=== PATIENT | male | born 1980 | race Caucasian/White ===

== ENCOUNTER 2020-11-03 11:41 | Day surgery (SDC) | payer OTHER ==
[2020-10-31 17:01] VITALS: BMI 31.2
[2020-11-03] MEDS ORDERED: KETAMINE HCL 500 MG/10 ML VIAL ONE (12:43)
[2020-11-03 14:07] VITALS: TEMP 98
[2020-11-03 14:22] VITALS: BP 130/85; PULSE 75
== END 2020-11-03 14:20 | disposition home or self-care (01) ==
LOC: FECT 11:41
PROVIDERS: ATTEND Psychiatry & Neurology Psychiatry
PROC: GZB4ZZZ Other Electroconvulsive Therapy (ICD-10-PCS; principal; 2020-11-03 12:30)
DX: F32.9 Major depressive disorder, single episode, unspecified (principal)
CPT/HCPCS: 90870; 94760

== ENCOUNTER 2020-11-04 07:23 | Day surgery (SDC) | payer OTHER ==
[2020-11-04 08:00] VITALS: BMI 31.2
[2020-11-04] MEDS ORDERED: SUCCINYLCHOLINE CHLORIDE 200 MG/10 ML SYRINGE ONE (09:28)
[2020-11-04] MEDS ORDERED: KETAMINE HCL 500 MG/10 ML VIAL ONE (09:29)
[2020-11-04 11:18] VITALS: BP 128/77; PULSE 56
[2020-11-04 13:17] VITALS: TEMP 98.9
[2020-11-05 14:08] LABS: SARS-CoV-2 NAA Not Detected (Not Detected)
== END 2020-11-04 10:45 | disposition home or self-care (01) ==
LOC: FECT 07:23
PROVIDERS: ATTEND Psychiatry & Neurology Psychiatry
PROC: GZB4ZZZ Other Electroconvulsive Therapy (ICD-10-PCS; principal; 2020-11-04 09:30)
DX: F32.9 Major depressive disorder, single episode, unspecified (principal)
CPT/HCPCS: 90870; 94760; C9803; U0003; U0005

== ENCOUNTER 2020-11-07 10:42 | Day surgery (SDC) | payer OTHER ==
[2020-11-04 08:12] VITALS: BMI 31.2
[2020-11-07] MEDS ORDERED: KETAMINE HCL 500 MG/10 ML VIAL ONE (12:38)
[2020-11-07] MEDS ORDERED: KETOROLAC TROMETHAMINE 30 MG/1 ML VIAL ONE (12:45)
[2020-11-07 14:10] VITALS: TEMP 98.2
[2020-11-08 09:16] VITALS: BP 132/81; PULSE 73
== END 2020-11-07 14:40 | disposition home or self-care (01) ==
LOC: FECT 10:42
PROVIDERS: ATTEND Psychiatry & Neurology Psychiatry
PROC: GZB4ZZZ Other Electroconvulsive Therapy (ICD-10-PCS; principal; 2020-11-07 12:30)
DX: F32.9 Major depressive disorder, single episode, unspecified (principal)
CPT/HCPCS: 90870; 94760; C9803; U0003; U0005

== ENCOUNTER 2020-11-10 10:01 | Day surgery (SDC) | payer OTHER ==
[2020-11-04 08:15] VITALS: BMI 31.2
[2020-11-10] MEDS ORDERED: KETAMINE HCL 500 MG/10 ML VIAL ONE (12:38)
[2020-11-10 13:58] VITALS: BP 141/77; PULSE 88; TEMP 98
== END 2020-11-10 14:16 | disposition home or self-care (01) ==
LOC: FECT 10:01
PROVIDERS: ATTEND Psychiatry & Neurology Psychiatry
PROC: GZB4ZZZ Other Electroconvulsive Therapy (ICD-10-PCS; principal; 2020-11-10 11:30)
DX: F32.9 Major depressive disorder, single episode, unspecified (principal)
CPT/HCPCS: 90870; 94760

== ENCOUNTER 2020-11-11 08:55 | Day surgery (SDC) | payer OTHER ==
[2020-11-08 13:24] VITALS: BMI 31.2
[2020-11-11 09:14] VITALS: TEMP 97.8
[2020-11-11 11:24] VITALS: BP 126/71; PULSE 75
== END 2020-11-11 11:26 | disposition home or self-care (01) ==
LOC: FECT 08:55
PROVIDERS: ATTEND Psychiatry & Neurology Psychiatry
PROC: GZB4ZZZ Other Electroconvulsive Therapy (ICD-10-PCS; principal; 2020-11-11 10:30)
DX: F32.9 Major depressive disorder, single episode, unspecified (principal)
CPT/HCPCS: 90870; 94760; C9803; U0003; U0005

== ENCOUNTER 2020-11-14 07:41 | Day surgery (SDC) | payer OTHER ==
[2020-11-08 13:31] VITALS: BMI 31.2
[2020-11-14] MEDS ORDERED: KETAMINE HCL 500 MG/10 ML VIAL ONE (09:17)
[2020-11-14] MEDS ORDERED: MIDAZOLAM HCL 2 MG/2 ML SINGLE DOSE VIAL ONE (09:37)
[2020-11-14 10:49] VITALS: TEMP 98.2
[2020-11-14 11:54] VITALS: BP 126/72; PULSE 81
== END 2020-11-14 11:10 | disposition home or self-care (01) ==
LOC: FECT 07:41
PROVIDERS: ATTEND Psychiatry & Neurology Psychiatry
PROC: GZB4ZZZ Other Electroconvulsive Therapy (ICD-10-PCS; principal; 2020-11-14 07:30)
DX: F33.2 Major depressive disorder, recurrent severe without psychotic features (principal)
CPT/HCPCS: 90870; 94760; C9803; U0003; U0005

== ENCOUNTER 2020-11-17 08:43 | Day surgery (SDC) | payer OTHER ==
[2020-11-11 15:56] VITALS: BMI 31.2
[2020-11-17 09:09] VITALS: TEMP 98.1
[2020-11-17] MEDS ORDERED: KETAMINE HCL 500 MG/10 ML VIAL ONE (09:36)
[2020-11-17] MEDS ORDERED: MIDAZOLAM HCL 2 MG/2 ML SINGLE DOSE VIAL ONE (09:37)
[2020-11-17 12:12] VITALS: BP 132/79; PULSE 79
== END 2020-11-17 11:20 | disposition home or self-care (01) ==
LOC: FECT 08:43
PROVIDERS: ATTEND Psychiatry & Neurology Psychiatry
PROC: GZB4ZZZ Other Electroconvulsive Therapy (ICD-10-PCS; principal; 2020-11-17 10:00)
DX: F32.9 Major depressive disorder, single episode, unspecified (principal)
CPT/HCPCS: 90870; 94760; C9803; U0003; U0005

== ENCOUNTER 2020-11-18 06:42 | Day surgery (SDC) | payer OTHER ==
[2020-11-11 16:05] VITALS: BMI 31.2
[2020-11-18] MEDS ORDERED: MIDAZOLAM HCL 2 MG/2 ML SINGLE DOSE VIAL ONE (07:56)
[2020-11-18] MEDS ORDERED: KETAMINE HCL 500 MG/10 ML VIAL ONE (07:57)
[2020-11-18 09:35] VITALS: TEMP 98.4
[2020-11-18 09:39] VITALS: BP 146/90; PULSE 76
== END 2020-11-18 09:40 | disposition home or self-care (01) ==
LOC: FECT 06:42
PROVIDERS: ATTEND Psychiatry & Neurology Psychiatry
PROC: GZB4ZZZ Other Electroconvulsive Therapy (ICD-10-PCS; principal; 2020-11-18 07:30)
DX: F32.9 Major depressive disorder, single episode, unspecified (principal)
CPT/HCPCS: 90870; 94760; C9803; U0003; U0005

== ENCOUNTER 2020-11-22 07:28 | Day surgery (SDC) | payer OTHER ==
[2020-11-14 16:28] VITALS: BMI 31.2
[2020-11-22] MEDS ORDERED: KETAMINE HCL 500 MG/10 ML VIAL ONE (08:33)
[2020-11-22] MEDS ORDERED: SUCCINYLCHOLINE CHLORIDE 200 MG/10 ML SYRINGE ONE (08:36)
[2020-11-22] MEDS ORDERED: MIDAZOLAM HCL 2 MG/2 ML SINGLE DOSE VIAL ONE (08:43)
[2020-11-22 09:33] VITALS: TEMP 97.8
[2020-11-22 10:10] VITALS: BP 131/80; PULSE 81
== END 2020-11-22 10:12 | disposition home or self-care (01) ==
LOC: FECT 07:28
PROVIDERS: ATTEND Psychiatry & Neurology Psychiatry
PROC: GZB4ZZZ Other Electroconvulsive Therapy (ICD-10-PCS; principal; 2020-11-22 08:30)
DX: F32.9 Major depressive disorder, single episode, unspecified (principal)
CPT/HCPCS: 90870; 94760; C9803; U0003; U0005